=== PATIENT | male | born 1980 | race Asian ===

== ENCOUNTER 2020-04-26 00:11 | Emergency (ER) | payer OTHER, SELFPAY ==
[~2020-04-26] VITALS: Ht 167.6 cm; Wt 81.6 kg
[2020-04-26 00:11] VITALS: BP_SYST 131
--- NOTE | 2020-04-26 00:21 | NUR ---
Patient to ER bed 7 to gown for evaluation. Side rails up.
--- NOTE | 2020-04-26 00:30 | NUR ---
PT BIB BLS FROM HOME A&O X4 C/O OF RAPID HEART BEAT AFTER SMOKING MARIJUANA. PT STATES HE STARTED SMOKING 2 WEEKS AGO ABOUT EVERY OTHER DAY AND TODAY 20 MINS AFTER SMOKING HE FELT HIS HEART BEGIN TO RACE. PT DENIES NAUSEA, VOMITING, SOB, CHEST PAIN.
--- NOTE | 2020-04-26 00:36 | NUR ---
PATIENT COMPLAINS IT IS GETTING HARD TO BREATHE. PT O2 SAT AT 100% ON ROOM AIR. PER MD ORDER PT PLACED ON 2L NC. PT APPEARS TO BE ANXIOUS/NERVOUS.
--- NOTE | 2020-04-26 00:40 | NUR ---
# 20 gauge angiocath placed to RAC. Use of asceptic technique. Opsite placed over site. Blood return noted. Blood for lab drawn from site. Flushed with 10 cc of normal saline. No evidence of infiltration noted. Patient tolerated well.
--- NOTE | 2020-04-26 01:00 | NUR ---
ER Dr. BRAVO at bedside examining patient.
--- NOTE | 2020-04-26 01:12 | NUR ---
COVID SWAB COLLECTED AND SENT TO LAB.
[2020-04-26 01:16] LABS: BASOPHILS # (AUTO) 0.1 K/uL (0.0-0.2); BASOPHILS % (AUTO) 0.8 % (0.0-2.0); EOSINOPHILS # (AUTO) 0.4 K/uL (0.0-0.4); EOSINOPHILS % (AUTO) 3.6 % (0.0-4.0); HEMATOCRIT 44.5 % (36-54); LYMPHOCYTES # (AUTO) 2.5 K/uL (1.0-5.5); LYMPHOCYTES % (AUTO) 24.3 % (20.5-51.5); MEAN CORPUSCULAR HEMOGLOBIN 31 pg (27-31); MEAN CORPUSCULAR HGB CONC 34 % (32-36); MEAN CORPUSCULAR VOLUME 91 fL (79.0-98.0); MONOCYTES # (AUTO) 0.8 K/uL (0.0-1.0); MONOCYTES % (AUTO) 7.4 % (1.7-9.3); NEUTROPHILS # (AUTO) 6.6 K/uL (1.8-7.7); NEUTROPHILS % (AUTO) 63.9 % (40.0-70.0); PLATELET COUNT (AUTO) 301 K/uL (130-430); RED BLOOD CELL COUNT(AUTO) 4.88 MIL/uL (4.2-6.2); RED CELL DISTRIBUTION WIDTH 12.7 % (9.0-15.0); WHITE BLOOD COUNT (AUTO) 10.3 K/uL (4.8-10.8)
--- NOTE | 2020-04-26 01:16 | NUR ---
PATIENT GIVEN URINAL TO COLLECT URINE SAMPLE.
[2020-04-26 01:29] LABS: ANION GAP 10 (5-15); CALCIUM 8.3 mg/dL (8.4-11.0); CHLORIDE 99 mmol/L (98-107); CREATININE 1.27 mg/dL (0.55-1.30); GLUCOSE 174 mg/dL (70-99); SODIUM SERUM 137 mmol/L (136-145); UREA NITROGEN, BLOOD 16 mg/dL (8-21)
[2020-04-26 01:42] LABS: ALANINE AMINOTRANSFERASE 38 U/L (12-78); ASPARTATE AMINOTRANSFERASE 20 U/L (10-37); GFR AFRICAN AMERICAN 82 mL/min (>90); TOTAL BILIRUBIN 0.4 mg/dL (0.0-1.0)
--- NOTE | 2020-04-26 01:42 | NUR ---
PT UNABLE TO GIVE URINE SAMPLE EARLIER, WAS GIVEN WATER, GOING TO TRY TO GIVE SAMPLE NOW.
[2020-04-26 01:43] LABS: ACETAMINOPHEN < 1 ug/mL (1-30); ALCOHOL, BLOOD < 3 mg/dL (<10)
[2020-04-26] MEDS ORDERED: NACL 0.9% 1,000 ML IV ONE (01:45)
[2020-04-26] MEDS ORDERED: LORazepam 2 MG/ML VIAL IVP ONE (01:45)
[2020-04-26] MEDS ORDERED: POTASSIUM CHLORIDE 20 MEQ TAB.PRT.SR PO ONE (02:15)
--- NOTE | 2020-04-26 02:27 | NUR ---
URINE COLLECTED AND SENT TO LAB.
--- NOTE | 2020-04-26 02:28 | NUR ---
PATIENT 02 SAT ON ROOM AIR IS 97%.
[2020-04-26 02:33] LABS: BILIRUBIN,URINE NEGATIVE (NEGATIVE); BLOOD, URINE NEGATIVE (NEGATIVE); CLARITY/URINE CLEAR (CLEAR); COLOR,URINE YELLOW (YELLOW); GLUCOSE,URINE NEGATIVE (NEGATIVE); KETONES,URINE TRACE (NEGATIVE); LEUKOCYTE ESTERASE ,URINE NEGATIVE (NEGATIVE); NITRITE, URINE NEGATIVE (NEGATIVE); PH,URINE 5.5 (5.0-8.0); PROTEIN URINE NEGATIVE (NEGATIVE); UROBILINOGEN,URINE 0.2 (0.2-1.0)
[2020-04-26] MEDS ORDERED: POTASSIUM CHLORIDE 10 MEQ TAB.PRT.SR ONE (02:41)
[2020-04-26 02:44] LABS: BARBITURATE, URINE NEGATIVE (NEG <=200); BENZODIAZEPINE, URINE NEGATIVE (NEG <=150); CANNABINOID, URINE POSITIVE (NEG <=50); COCAINE, URINE NEGATIVE (NEG <=150); METHAMPHETAMINES SCREEN,URINE NEGATIVE (NEG <=500); OPIATE, URINE NEGATIVE (NEG <=100); PHENCYCLIDINE SCREEN,URINE NEGATIVE (NEG <=25); UR TRICYCLIC ANTIDEPRESSANTS NEGATIVE (NEG <=300); URINE AMPHETAMINE NEGATIVE (NEG <=500); URINE METHADONE NEGATIVE (NEG <=200); URINE OXYCODONE SCREEN NEGATIVE (NEG <=100); URINE PROPOXYPHENE SCREEN NEGATIVE (NEG <=300)
--- NOTE | 2020-04-26 03:42 | NUR ---
dr. solorzano at bedside speaking with patient.
[2020-04-26 03:55] VITALS: BP_SYST 123
== END 2020-04-26 03:55 | disposition home or self-care (01) ==
LOC: SED 00:11
DX: F41.9 Anxiety disorder, unspecified (principal); R00.2 Palpitations; Z20.828 Contact with and (suspected) exposure to other viral communicable diseases
CPT/HCPCS: 36415; 80053; 80307; 81003; 85025; 87426; 93005; 99284; G0480; G0481; G0482; J7030